=== PATIENT | male | born 1965 | race Hispanic/Latino ===

== ENCOUNTER 2019-10-13 09:39 | Inpatient (IN) ==
[2019-10-13 10:08] LABS: URINE SOURCE CLEAN CATCH
[2019-10-13 10:12] LABS: BASO# 0.05 X1000 (0.0-0.2); BASO% 0.7 % (0.0-0.8); EOS% 7.5 % (0.0-10.0); HEMATOCRIT 44.9 % (42.0-52.0); HEMOGLOBIN 15.7 g/dL (14.0-18.0); LYMPH# 1.73 X1000 (1.2-3.4); LYMPH% 25.9 % (20.5-51.1); MCH 28.3 PG (27-31); MCV 80.9 FL (81-99); MONO# 0.33 X1000 (0.11-0.59); MONO% 4.9 % (1.7-9.3); MPV 11.6 FL (7.4-10.4); NEUT# 4.07 X1000 (1.4-6.5); PLT 224 X1000 (130-400); RBC 5.55 XMIL (4.7-6.1); RDW 12.5 % (11.5-14.5); WBC 6.68 X1000 (4.8-10.8)
[2019-10-13 10:16] LABS: BILIRUBIN URINE NEGATIVE (NEGATIVE); BLOOD URINE NEGATIVE (NEGATIVE); COLOR STRAW; GLUCOSE URINE >1000 mg/dL (NEGATIVE); KETONE URINE NEGATIVE (NEGATIVE); LEUKOCYTES URINE NEGATIVE (NEGATIVE); NITRITE URINE NEGATIVE (NEGATIVE); PROTEIN URINE NEGATIVE (NEGATIVE); SP GRAVITY URINE 1.032; TURBIDITY URINE CLEAR (CLEAR); UR EPITHELIAL CELLS <10 /HPF (<10); URINE BACTERIA NEGATIVE /HPF; URINE RBC <10 /HPF (<10); URINE WBC <10 /HPF (<10); UROBILINOGEN URINE NORMAL (NORMAL)
[2019-10-13 10:48] LABS: AGAP 14; ALB/GLOB RATIO 1.4; ALBUMIN 3.7 g/dL (3.5-5.0); ALKALINE PHOSPHATASE 98 U/L (32-122); AMYLASE 66 U/L (20-200); BUN 17 mg/dL (8-22); CALCIUM 9.1 mg/dL (8.8-10.2); CHLORIDE 97 mmol/L (98-107); COSMO 301; CREATININE 0.9 mg/dL (0.7-1.2); ESTIMATED GFR > 60; GLUCOSE 697 mg/dL (70-104); GOT 13 U/L (10-34); GPT 14 U/L (10-44); LIPASE 105 U/L (13-60); POTASSIUM 4.4 mmol/L (3.5-5.1); SODIUM 133 mmol/L (136-145); TCO2 22 mmol/L (25-35); TOTAL BILIRUBIN 0.49 mg/dL (0.20-1.00); TOTAL PROTEIN 6.3 g/dL (6.3-8.3)
[2019-10-13] MEDS ORDERED: NS 1,000 ML IV ONE ×3 (11:01→14:16)
[2019-10-13] MEDS ORDERED: POTASSIUM CHLORIDE 10% LIQUID PO PRN (11:03)
[2019-10-13] MEDS ORDERED: SODIUM BICARBONATE 8.4% 100 MEQ in STERILE WATER INJ. 500 ML IV PRN (11:03)
[2019-10-13] MEDS ORDERED: POTASSIUM CHLORIDE 20 MEQ/SWI 20 MEQ/100 ML IVPB IV PRN ×2 (11:03)
[2019-10-13] MEDS ORDERED: MAGNESIUM SULFATE 2 GM/S.W.I. 2 GM/50 ML IVPB IV PRN (11:03)
[2019-10-13] MEDS ORDERED: POTASSIUM CHLORIDE 20% LIQUID PO PRN (11:03)
[2019-10-13] MEDS ORDERED: HUMULIN R IV ONE (11:03)
[2019-10-13] MEDS ORDERED: D50W SYRINGE IV PRN ×2 (11:03)
--- NOTE | 2019-10-13 11:15 | PROVIDER DOCUMENTATION ---
HPI-General Adult - General Chief Complaint: General Adult Stated Complaint: "BLOOD SUGAR PROBLEMS" Time Seen by Provider: 10/13/19 10:40 Source: patient Allergies/Adverse Reactions: Patient Allergies Allergy/AdvReac Type Severity Reaction Status Date / Time No Known Allergies Allergy Verified 08/25/19 08:05 - History of Present Illness -Gen Adult Nature of Presenting Problems: Patient is a 54yo M who presents, accompanied by significant other, with c omplaints of "blood sugar problems." Reports he believes his blood sugar is elevated d/t symptoms of polydipsia, polyuria, polyphagia, burning/itching in feet, and weight loss x3 months. States his mother has DM. Also reports intermittent abdominal pain and nausea/vomiting. Denies fever, CP, SOB, di arrhea. Location of Pain/Injury: reports: generalized Pain Radiation: reports: no radiation Quality of Pain: reports: aching, other (itching) Severity: reports: mild Onset/Duration: reports: other (3 months ago) Timing: reports: still present Context/Activities at Onset: reports: none Modifying Factors: improves with: nothing Associated Symptoms: reports: genitourinary problems, loss of appetite, nausea. denies: back/neck pain, chest pain, fever/chills, shortness of breath, vomiting Similar Symptoms Previously?: No Recently seen or treated by another doctor?: No - Diabetes Related Context Context: reports: high blood sugar (Patient believes his blood sugar is high; has not checked) Review of Systems - Adult - REVIEW OF SYSTEMS - ADULT Constitutional: reports: see HPI, weight loss (over 3 months). denies: chills, fever Eyes: reports: no symptoms reported. denies: blurred vision, double vision Ears, Nose, Mouth & Throat: reports: no symptoms reported. denies: ear pain, throat pain Cardiovascular: reports: no symptoms reported. denies: chest pain, palpitations Respiratory: reports: no symptoms reported. denies: cough, shortness of breath Gastrointestinal: reports: see HPI, abdominal pain (intermittent), nausea, vomiting. denies: diarrhea Genitourinary: reports: see HPI, frequency. denies: dysuria Musculoskeletal: reports: no symptoms reported Integumentary: reports: see HPI, itching Neurological: reports: no symptoms reported. denies: dizziness/vertigo, headache/migraines, syncope Psychiatric: reports: no symptoms reported Endocrine: reports: see HPI, increased hunger, increased thirst, polyuria Past History - Adult - PAST MEDICAL HISTORY-ADULT Review of Records: reports: Nursing Assessment Review, Medications Reviewed Major Childhood Illnesses: reports: denies history Cardiovascular: reports: denies history Respiratory: reports: denies history Gastrointestinal: reports: denies history Obstetrical/Gynecological: reports: denies history Genitourinary: reports: denies history Musculoskeletal: reports: denies history Neurological: reports: denies history Psychiatric: reports: denies history Endocrine/Immune: reports: denies history Other Conditions: reports: denies history - PRIOR SURGERIES/PROCEDURES Surgical/Procedure History: reports: none - IMMUNIZATION STATUS Childhood Immunizations: See Nurse Assessment Flu Vaccine: See Nurse Assessment - FAMILY HISTORY Family History: diabetes - SOCIAL HISTORY Smoking: denies, non-smoker Physical Exam-General - PHYSICAL EXAM-ADULT Initial Vital Signs Reviewed: Yes - CONSTITUTIONAL General Appearance: alert, mild distress. negative: lethargic, slow to respond, obtunded - EYES Eyes: PERRL/EOMI, pink conjunctivae. negative: EOM palsy, scleral icterus - HEAD, EARS, NOSE, MOUTH & THROAT HENMT: normocephalic/atraumatic, moist mucous membranes. negative: angioedema - NECK Neck: full range of motion, supple, normal inspection - RESPIRATORY Respiratory: chest non-tender, lungs clear, normal breath sounds, no pleuratic chest pain, no respiratory distress, no accessory muscle use. negative: crackles, rales, rhonchi, stridor, wheezing, retractions, splinting - CARDIOVASCULAR Cardiovascular: regular rate, rhythm - GASTROINTESTINAL (ABDOMEN) Abdominal Exam: normal bowel sounds, non tender, soft. negative: rigid, t enderness - MUSCULOSKELETAL Back Exam: normal inspection Extremity: normal range of motion, non-tender, normal gait, normal inspection - SKIN Integumentary: normal color, warm/dry. negative: cyanosis, jaundice, mottled, p allor - NEUROLOGIC Neurologic: grossly normal. negative: abnormal gait, aphasia, EOM palsy - PSYCHIATRIC Psych/Mental Status: normal mood/affect, normal thought content, normal thought process, oriented x 3 Progress - PLAN OF CARE/RESULTS Progress/Plan/Lab Results: Vital Signs - 8 hr 10/13/19 09:44 Temperature 98.1 F Pulse Rate 94 H Respiratory Rate 20 Blood Pressure 114/78 O2 Sat by Pulse Oximetry 98 Laboratory Results - last 24 hr 10/13/19 10/13/19 10/13/19 09:57 09:57 09:57 WBC 6.68 RBC 5.55 Hgb 15.7 Hct 44.9 MCV 80.9 L MCH 28.3 MCHC 35.0 RDW Std Deviation 12.5 Plt Count 224 MPV 11.6 H Immature Gran % (Auto) 0.0 Neut % (Auto) 61.0 Lymph % (Auto) 25.9 [place] % (Auto) 4.9 Eos % (Auto) 7.5 Baso % (Auto) 0.7 Immature Gran # (Auto) 0.00 Neut # (Auto) 4.07 Lymph # (Auto) 1.73 [place] # (Auto) 0.33 Eos # (Auto) 0.50 Baso # (Auto) 0.05 Sodium 133 L Potassium 4.4 Chloride 97 L Carbon Dioxide 22 L Anion Gap 14 BUN 17 Creatinine 0.9 Estimated GFR/1.73 m2 > 60 BUN/Creatinine Ratio 19 Glucose 697 H* Calculated Osmolality 301 Calcium 9.1 Total Bilirubin 0.49 AST 13 ALT 14 Alkaline Phosphatase 98 Total Protein 6.3 Albumin 3.7 Globulin 2.6 Albumin/Globulin Ratio 1.4 Amylase 66 Lipase 105 H Plasma Lactate Urine Source Urine Color Urine Turbidity Urine pH Ur Specific [place] Urine Protein Ur Glucose (Stick) Ur Ketones (Stick) Urine Blood Urine Nitrite Urine Bilirubin Urobilinogen Dipstick Urine Leukocytes Urine WBC (Auto) Urine RBC (Auto) U Epithel Cells (Auto) Urine Bacteria (Auto) Acetone Level NEGATIVE 10/13/19 10/13/19 10:00 10:43 WBC RBC Hgb Hct MCV MCH MCHC RDW Std Deviation Plt Count MPV Immature Gran % (Auto) Neut % (Auto) Lymph % (Auto) [place] % (Auto) Eos % (Auto) Baso % (Auto) Immature Gran # (Auto) Neut # (Auto) Lymph # (Auto) [place] # (Auto) Eos # (Auto) Baso # (Auto) Sodium Potassium Chloride Carbon Dioxide Anion Gap BUN Creatinine Estimated GFR/1.73 m2 BUN/Creatinine Ratio Glucose Calculated Osmolality Calcium Total Bilirubin AST ALT Alkaline Phosphatase Total Protein Albumin Globulin Albumin/Globulin Ratio Amylase Lipase Plasma Lactate 3.7 H Urine Source CLEAN CATCH Urine Color STRAW Urine Turbidity CLEAR Urine pH 6.0 Ur Specific [place] 1.032 Urine Protein NEGATIVE Ur Glucose (Stick) >1000 A Ur Ketones (Stick) NEGATIVE Urine Blood NEGATIVE Urine Nitrite NEGATIVE Urine Bilirubin NEGATIVE Urobilinogen Dipstick NORMAL Urine Leukocytes NEGATIVE Urine WBC (Auto) <10 Urine RBC (Auto) <10 U Epithel Cells (Auto) <10 Urine Bacteria (Auto) NEGATIVE Acetone Level Orders Category Date Time Status Cardiac Monitoring DIRECTED Care 10/13/19 11:03 Active FSBS [Finger Stick Blood Sugar (ED)] DIRECTED Care 10/13/19 10:39 Completed FSBS/Accucheck Result Q15M Care 10/13/19 11:05 Active FSBS/Accucheck Result Q1H Care 10/13/19 11:03 Active Hypoglycemia/FSBS <50 or Range of 50-70 PRN Care 10/13/19 11:05 Active Notify Physician ORDERED Care 10/13/19 11:05 Active Saline Loc DIRECTED Care 10/13/19 11:05 Active Saline Loc NOW Care 10/13/19 11:01 Active Vital Signs Order Q1H Care 10/13/19 11:03 Active ABG [RESP] Routine Lab 10/13/19 11:01 Ordered ACETONE SERUM [CHEM] Stat Lab 10/13/19 09:57 Completed AMYLASE [CHEM] Stat Lab 10/13/19 09:57 Completed CBC WITH DIFF [HEME] Stat Lab 10/13/19 09:57 Completed CK PROFILE [SP CHEM] Stat Lab 10/13/19 11:03 Uncollected COMPREHENSIVE METABOLIC PANEL [CHEM] Stat Lab 10/13/19 09:57 Completed LACTATE, PLASMA [CHEM] Q3H Lab 10/13/19 13:44 Uncollected LACTATE, PLASMA [CHEM] Q3H Lab 10/13/19 16:44 Uncollected LACTATE, PLASMA [CHEM] Stat Lab 10/13/19 10:43 Completed LIPASE [CHEM] Stat Lab 10/13/19 09:57 Completed MAGNESIUM [CHEM] Stat Lab 10/13/19 11:03 Ordered PHOSPHORUS [CHEM] Stat Lab 10/13/19 11:03 Ordered POTASSIUM [CHEM] Timed Lab 10/13/19 11:03 Uncollected TROPONIN T HIGH SENSITIVITY Stat Lab 10/13/19 11:03 Uncollected URINALYSIS W/POSS RFLX CULT [URINALYSIS] Stat Lab 10/13/19 10:00 Completed URINE DRUG SCREEN Stat Lab 10/13/19 11:03 Ordered 0.9% Sodium Chloride Inj [Ns] 1,000 ml Med 10/13/19 11:01 Active IV 999 mls/hr 0.9% Sodium Chloride Inj [Ns] 1,000 ml Med 10/13/19 11:03 Active IV 999 mls/hr Dextrose 50% Syringe [D50w Syringe] Med 10/13/19 11:03 Active 25 ml IV PRN PRN Dextrose 50% Syringe [D50w Syringe] Med 10/13/19 11:03 Active 50 ml IV PRN PRN Insulin Human Regular [Humulin R] Med 10/13/19 11:03 Discontinued 7.9 unit IV ONCE ONE Magnesium Sulfate 2 gm/S.w.i. Med 10/13/19 11:03 Active 2 gm in 50 ml IV ONCE PRN Potassium Chloride 10% Liquid Med 10/13/19 11:03 Active 20 meq PO ONCE PRN PRN Potassium Chloride 20 Meq/Swi Med 10/13/19 11:03 Ordered 20 meq in 100 ml IV ONCE PRN Potassium Chloride 20 Meq/Swi Med 10/13/19 11:03 Ordered 20 meq in 100 ml IV ONCE PRN Potassium Chloride 20% Liquid Med 10/13/19 11:03 Ordered 40 meq PO ONCE PRN PRN Sodium Bicarbonate 8.4% 100 meq Med 10/13/19 11:03 Ordered Water, Sterile Inj [Sterile Water Inj] 500 ml IV ONCE PRN Hypoglycemia Stat Oth 10/13/19 11:03 Ordered EKG [EKG] Routine Ther 10/13/19 11:03 Ordered Lab results, imaging results, plan of care, and need for admission discussed with patient who agrees with and verbalizes understanding. Result Diagrams: 10/13/19 09:57 10/13/19 13:57 - REASSESSMENT Reassessment #1 Time Reassessed: 13:00 Reassessment Comment: Hospitalist paged - XRAY 1 XRAY: Bilateral XRAY Study: Chest Impression: See EMR Report ([facility] - [address], [address], [place] [address] [facility] - [address] [place] [address] Department of Imaging Patient: TREJOCARLO NICOLEADM Date: 10/13/19MR#: [id number] : 1965ADM Status: PRE ERAcct#: [id number] Age/Sex: 54/MRoom/Bed: Loc: ED Ordering Physician: Saundra Coto Family Physician: None,PCP Reason for Procedure: Possible DKA Signed CHEST-2 VIEWS - 10/13/2019 INDICATION: Possible DKA COMPARISON: None FINDINGS: The lungs are normally expanded and clear. Heart size and mediastinal contours are normal. No pneumothorax or pleural effusion. IMPRESSION: Negative exam. Electronically signed by Poncho Elizabeth 10/13/2019 12:43 PM 10/13/19 1243 Interpreting Physician: Poncho Elizabeth MD Dictated Date/Time: 10/13/19 1243 cc: Saundra Torres; None,PCP) - CT/MRI 1 CT Study: Abdomen, Pelvis Impression: See EMR Report ([facility] - [address] [place] [address] [address], [place] [address] [facility] - [address] [place] [address] Department of Imaging Patient: CARLO AVELARADM Date: 10/13/19MR#: [id number] : 1965ADM Status: REG ERAcct#: [id number] Age/Sex: 54/MRoom/Bed: Loc: ED Ordering Physician: Saundra Coto Family Physician: None,PCP Reason for Procedure: abd pain; elevated lipase Signed CT ABD/PELVIS W/IV CONT ONLY - 10/13/2019 INDICATION: abd pain; elevated lipase COMPARISON: None FINDINGS: The lung bases are clear and the heart size is normal. The liver, gallbladder, spleen, pancreas, adrenals, and kidneys are normal. No bowel obstruction or inflammation. There is significant, diffuse constipation. Urinary bladder, prostate, and rectum are normal. There are moderate degenerative changes of the spine. No acute or suspicious bony lesion. IMPRESSION: Significant, diffuse constipation. Otherwise no acute disease. This exam was performed using automated exposure control, adjustment of mA or kV according to patient size, and/or use of iterative reconstruction technique Electronically signed by Poncho Elizabeth 10/13/2019 12:50 PM 10/13/19 1250 Interpreting Physician: Poncho Elizabeth MD Dictated Date/Time: 10/13/19 1249 cc: Saundra Torres; None,PCP) - CONSULTS/PCP/HOSPITALIST Notification #1 *Consult/PCP/Hospitalist*: Anu Delgado Time Discussed: 13:13 Reason/Comments: New onset DM; elevated lactic acid; abdominal pain; nausea Consult Disposition: Will see in ED, Admit Departure - Departure Date of Disposition Decision: 10/13/19 Time of Disposition Decision: 13:13 DIAGNOSIS: Diabetes mellitus, new onset, Hyperglycemia, Elevated lactic acid level, Elevated lipase Abdominal pain Qualifiers: Abdominal location: generalized Qualified Code(s): R10.84 - Generalized abdominal pain Nausea and vomiting Qualifiers: Vomiting type: unspecified Vomiting Intractability: unspecified Qualified Code(s): R11.2 - Nausea with vomiting, unspecified Disposition: ADMITTED INPATIENT 09 Certified Medical Emergency: Emergent Condition: Stable - Critical Care Note This patient required my direct & personal management of CC.: No Attestation - Physician/ DEO Attestation Patient care was provided by Advanced Practice Provider:: Yes Advanced Practice Provider:: Saundra Torres Advanced Practice Provider documentation review:: The Mid-level provider documentation, treatment plan and medical decision making was reviewed by the physician who agrees with all treatment and medical decision making by the P. The physician spent face to face time with patient:: No Advanced Practice Provider documentation review:: Supervising physician onsite and consulted in the evaluation and care of this patient. The physician did not have a face to face encounter with the patient.
[2019-10-13 11:24] LABS: ALLEN TEST YES; BE -2.7 mmoll (-3.0-3.0); BLOOD TYPE ARTERIAL; HCO3-(ACT) 22.8 mmoll (20.0-26.0); METHB 0.2 % (0.0-1.5); O2(CT) 21.1 mL/dL (15.0-23.0); O2HB 96.2 % (95.0-99.0); PCO2(98.6) 37 mmHg (35-45); PO2(98.6) 90 mmHg (60-100); SAMPLE BLOOD; SAO2 99.5 % (95.0-100.0); THB 15.6 g/dL (11.5-17.4); pH(98.6) 7.38 (7.35-7.45)
[2019-10-13 11:25] LABS: MODALITY ROOM AIR
[2019-10-13 11:48] LABS: UR AMPHETAMINES QUAL NONE DETECTED (NONE DETECT); UR BARBITUATES QUAL NONE DETECTED (NONE DETECT); UR BENZODIAZEPIN QUAL NONE DETECTED (NONE DETECT); UR CANNABINOIDS QUAL NONE DETECTED (NONE DETECT); UR COCAINE QUAL NONE DETECTED (NONE DETECT); UR METHADONE QUAL NONE DETECTED (NONE DETECT); UR OPIATES QUAL NONE DETECTED (NONE DETECT); UR OXYCODONE QUAL NONE DETECTED (NONE DETECT); UR PCP QUAL NONE DETECTED (NONE DETECT)
--- NOTE | 2019-10-13 12:46 | Diag Imaging Result Doc PS360 ---
CHEST-2 VIEWS - 10/13/2019 INDICATION: Possible DKA COMPARISON: None FINDINGS: The lungs are normally expanded and clear. Heart size and mediastinal contours are normal. No pneumothorax or pleural effusion. IMPRESSION: Negative exam. Electronically signed by Poncho Elizabeth 10/13/2019 12:43 PM
--- NOTE | 2019-10-13 12:53 | Diag Imaging Result Doc PS360 ---
CT ABD/PELVIS W/IV CONT ONLY - 10/13/2019 INDICATION: abd pain; elevated lipase COMPARISON: None FINDINGS: The lung bases are clear and the heart size is normal. The liver, gallbladder, spleen, pancreas, adrenals, and kidneys are normal. No bowel obstruction or inflammation. There is significant, diffuse constipation. Urinary bladder, prostate, and rectum are normal. There are moderate degenerative changes of the spine. No acute or suspicious bony lesion. IMPRESSION: Significant, diffuse constipation. Otherwise no acute disease. This exam was performed using automated exposure control, adjustment of mA or kV according to patient size, and/or use of iterative reconstruction technique Electronically signed by Poncho Elizabeth 10/13/2019 12:50 PM
[2019-10-13 14:17] LABS: HEMOGLOBIN A1C 12.5 % (4.8-6.0)
[2019-10-13] MEDS ORDERED: NS 1,000 ML ONE (14:21)
[2019-10-13] MEDS ORDERED: ZOFRAN IV PRN (14:56)
[2019-10-13 15:02] LABS: AGAP 9; BUN 16 mg/dL (8-22); CALCIUM 8.3 mg/dL (8.8-10.2); CHLORIDE 106 mmol/L (98-107); COSMO 287; CREATININE 0.6 mg/dL (0.7-1.2); ESTIMATED GFR > 60; GLUCOSE 279 mg/dL (70-104); MAGNESIUM 1.9 mg/dL (1.5-2.7); PHOSPHORUS 2.6 mg/dL (2.7-4.5); POTASSIUM 4.1 mmol/L (3.5-5.1); SODIUM 138 mmol/L (136-145); TCO2 23 mmol/L (25-35)
[2019-10-13] MEDS ORDERED: FLEET MINERAL OIL ENEMA PR ONE ×2 (15:06→17:26)
[2019-10-13] MEDS ORDERED: FLEET ENEMA PR ONE (15:06)
[2019-10-13] MEDS ORDERED: PROTONIX IV SCH (15:15)
[2019-10-13] MEDS ORDERED: SODIUM CHLORIDE 0.9% INJ SCH (15:15)
[2019-10-13] MEDS: HUMALOG SUBQ SCH ×2 (16:44→21:18)
[2019-10-13] MEDS ORDERED: DULCOLAX PR SCH (18:00)
[2019-10-13] MEDS: GLUCOPHAGE PO SCH (18:43)
--- NOTE | 2019-10-13 20:38 | HISTORY AND PHYSICAL ---
CHIEF COMPLAINT: Abdominal pain, nausea, polydipsia, polyuria, polyphagia, and weight loss. HISTORY OF PRESENT ILLNESS: This is a 54-year-old gentleman who presented to the emergency room complaining of polydipsia, polyuria, polyphagia, as well as burning and itching in his feet, and weight loss over the last 3 months. He states that over the last probably 3 to 4 weeks, he has had intermittent abdominal pain with nausea and vomiting. Nausea has been persistent over the past few days. He does complain of abdominal pain, particularly his umbilical to right upper quadrant area, on palpation. He describes this as an aching type pain. He denied any chest pain, shortness of breath, any diarrhea. PAST MEDICAL HISTORY: Denies. PAST SURGICAL HISTORY: Denies. SOCIAL HISTORY: He denies any alcohol, tobacco, or illicit drug use. FAMILY HISTORY: His mother has diabetes. REVIEW OF SYSTEMS: Discussed with patient with friend translating. He denies any syncope, dizziness, chest pain, palpitations, shortness of breath, cough, fever, chills, any diarrhea, constipation, any black or bloody vomitus or stools, any hematuria or dysuria. PHYSICAL EXAMINATION: GENERAL: This is a 54-year-old gentleman who is lying on the stretcher in the emergency room in no distress. VITAL SIGNS: Blood pressure is 134/70 with heart rate of 64, respirations are 16, temperature is 98.1 degrees, with room air saturations 96% to 98%. EYES: Pupils equal, round, and react to light. EOMs are intact. Sclerae are anicteric. HEENT: Head is normocephalic, atraumatic. Mucous membranes are moist. NECK: Supple, with trachea midline. CARDIOVASCULAR: Regular rate and rhythm. S1 and S2 appreciated. He has no lower extremity edema. Peripheral pulses are palpable x4 extremities. PULMONARY: Breath sounds are clear with no increased work of breathing noted. Chest rises and falls symmetrically with respiration. Chest wall is nontender to palpation. GASTROINTESTINAL: Abdomen is soft, nontender. He does have some tenderness around the umbilical and right upper quadrant area. Bowel sounds in all 4 quadrants. GENITOURINARY: No CVA or suprapubic tenderness. The bladder is not palpable. NEUROLOGIC: He is alert and oriented. SKIN: Warm and dry. LABS: WBC is 6.6 with hemoglobin 15.7, hematocrit 44.9, and platelets 224,000. Sodium 133, potassium is 4.4, CO2 22, anion gap 14, with a BUN of 17, a creatinine of 0.9, and a glucose of 697. Troponin was 25. Lipase 105 with a lactate of 3.7. Urinalysis is essentially negative with the exception of glucose of greater than 1000. Urine drug screen is none detected with acetone negative. Chest x-ray revealed a negative exam. CT of the abdomen and pelvis with IV contrast revealed significant diffuse constipation. ASSESSMENT AND PLAN: 1. New onset diabetes mellitus. 2. Hyperglycemia. 3. Abdominal pain, nausea, vomiting. 4. Pancreatitis with elevated lipase. PLAN: 1. The patient will be admitted to the hospital. 2. telemetry for close monitoring. 3. continue with intravenous hydration. 4.check blood sugars every 4 hours with sliding scale insulin. 5. recheck a BMP, magnesium, and phosphorus stat now. 6. CBC, CMP, magnesium, phosphorus, and lipase in the morning. 7. Zofran for nausea. 8. Fleet's oil enema with a saline enema now, and then will start Dulcolax suppositories every 6 hours. 9. For deep venous thrombosis prophylaxis, will use Lovenox. 10. For gastrointestinal prophylaxis, will use Protonix. Patient was examined and plan was discussed with Dr. Fuentes. Further treatments pending hospital course. Dictated by ORIN Farrell for Joe Brice MD cc: ORIN Farrell MD [facility]
--- NOTE | 2019-10-13 22:42 | HISTORY AND PHYSICAL ---
ADDENDUM: The patient was seen and examined by me [id number]. All laboratory, vital signs and images were reviewed. The patient presented to the emergency department with chief complaint of dizziness and as per the patient has been going on for a few weeks now, maybe 2 to 3 months. As per the patient, he has been having problems at work because of the dizziness and generalized weakness, he also felt that he has been losing weight, but he does not know how much though. He has been complaining of some abdominal discomfort on and off. CT scan done in the emergency department did not show any acute process but constipation. Chest x-ray is negative. This patient's blood sugar though upon admission was around 697. The anion gap was slightly elevated at 14, and after getting some fluids, it decreased to 9. He is not complaining of nausea or vomiting. His hemoglobin A1c is 12.5, and he has never been diagnosed with diabetes. He is getting some IV fluids. He is getting some enema and Dulcolax suppository for the constipation. As per the patient, he had some small and hard bowel movements. We will go ahead and put him on sliding scale insulin. Vital signs are stable. Hopefully we will discharge this patient in the next 24 to 48 hours. I will start this patient on metformin to see how he does, a low dose of lisinopril as well. His lipase level is slightly elevated. We will continue with the IV fluids. He is hungry, and he is not having significant pain upon palpation so I will put this patient on a clear liquid diet. I agree with the rest of the nurse practitioner's assessment and plan. cc: Joe Brice MD
[2019-10-14] MEDS: HUMALOG SUBQ SCH (06:42)
[2019-10-14 07:54] VITALS: BP 147/82
[2019-10-14 08:13] LABS: BASO# 0.02 X1000 (0.0-0.2); BASO% 0.2 % (0.0-0.8); EOS% 4.6 % (0.0-10.0); HEMATOCRIT 43.2 % (42.0-52.0); HEMOGLOBIN 15.3 g/dL (14.0-18.0); IMM GRAN# 0.02 X1000 (0.0-0.04); IMM GRAN% 0.2 % (0.0-0.5); LYMPH% 19.6 % (20.5-51.1); MCH 28.8 PG (27-31); MCHC 35.4 g/dL (33-37); MCV 81.4 FL (81-99); MONO# 0.29 X1000 (0.11-0.59); MONO% 3.3 % (1.7-9.3); MPV 11.3 FL (7.4-10.4); NEUT# 6.26 X1000 (1.4-6.5); NEUT% 72.1 % (42.2-75.2); PLT 205 X1000 (130-400); RBC 5.31 XMIL (4.7-6.1); RDW 12.6 % (11.5-14.5); WBC 8.69 X1000 (4.8-10.8)
[2019-10-14 08:51] LABS: AGAP 11; ALB/GLOB RATIO 1.4; ALBUMIN 3.3 g/dL (3.5-5.0); ALKALINE PHOSPHATASE 76 U/L (32-122); BUN 11 mg/dL (8-22); CALCIUM 8.8 mg/dL (8.8-10.2); CHLORIDE 103 mmol/L (98-107); COSMO 280; CREATININE 0.7 mg/dL (0.7-1.2); ESTIMATED GFR > 60; GLUCOSE 228 mg/dL (70-104); GOT 12 U/L (10-34); GPT 12 U/L (10-44); MAGNESIUM 1.9 mg/dL (1.5-2.7); POTASSIUM 3.8 mmol/L (3.5-5.1); SODIUM 137 mmol/L (136-145); TCO2 23 mmol/L (25-35); TOTAL BILIRUBIN 0.52 mg/dL (0.20-1.00); TOTAL PROTEIN 5.6 g/dL (6.3-8.3)
[2019-10-14] MEDS ORDERED: DULCOLAX PR SCH (09:00)
[2019-10-14] MEDS ORDERED: LOVENOX SUBQ SCH (09:00)
[2019-10-14] MEDS ORDERED: PRINIVIL PO SCH (09:00)
[2019-10-14 09:15] LABS: PHOSPHORUS 2.7 mg/dL (2.7-4.5)
[2019-10-14] MEDS: GLUCOPHAGE PO SCH (10:05)
--- NOTE | 2019-10-14 22:47 | DISCHARGE SUMMARY ---
ADMISSION DATE: 10/13/2019 DISCHARGE DATE: 10/14/2019 SUBJECTIVE: No acute events overnight. The patient is feeling much better. His blood sugar decreased from 697 to 228 today. I have started this patient on metformin twice a day. He will need to follow up with his primary doctor in 1 to 2 weeks. I talked to him and also his fiancee at the bedside about diabetes and diet. DISCHARGE DIAGNOSES: 1. New-onset type 2 diabetes with hyperglycemia, better. 2. Abdominal pain with elevated lipase level, possible mild pancreatitis, resolved. HOSPITAL COURSE: A 54-year-old male with no medical history presented to the emergency department with dizziness, fatigue, also generalized weakness, apparently he has been complaining of polydipsia, polyuria, polyphagia, as well as burning sensation of and itching in his feet. He reported also some weight loss over the last 3 months. As per the patient, he has been having intermittent abdominal pain with nausea for the past 3 to 4 weeks. He came to the emergency department and we found out that this patient's blood sugar was elevated at 697 with a hemoglobin A1c of 12.5. This patient received high IV hydration and also he was constipated. He received some enemas and suppository and this is much better. I had a large conversation with this patient about treatment options including p.o. treatment and insulin treatment. He would like to try 1st metformin with some lisinopril with diet and exercise before going ahead and trying some insulin. So I discussed with him the diet, as well as the fiancee at the bedside. He will need to follow up with his primary care doctor in 1 to 2 weeks. He needs to find 1 actually. His vital signs are stable and he is completely asymptomatic. OBJECTIVE: Vital signs: Temperature 98.1 degrees, pulse 72, respiratory rate 16, blood pressure 147/82. Oxygen saturation 95% on room air. HEENT: Head normocephalic, no trauma, PERRLA. Neck: Supple. No JVD. No masses. Central trachea. Chest: Clear to auscultation. No wheezing. No rales. Abdomen: Soft, nontender, nondistended. No hepatosplenomegaly. Extremities: No edema, no clubbing, no cyanosis. Neurological: The patient is awake and alert. He is oriented x3. No focal deficits. LABORATORY: WBC 8.6, hemoglobin 15.3, hematocrit 43.2, platelets 205,000. Sodium 137, potassium 3.8, chloride 103, bicarbonate 23, BUN 11, creatinine 0.7. Glucose 228, calcium 8.8, phosphorus 2.7. AST 12, ALT 12, alkaline phosphatase 76. Albumin 3.3. Lipase level is 22. DISCHARGE MEDICATIONS: 1. Dulcolax 10 mg per rectal daily as needed for constipation. 2. Lisinopril 10 mg p.o. daily. 3. Metformin 500 mg p.o. b.i.d. 4. MiraLAX 17 g p.o. daily. TIME DISCHARGING THIS PATIENT: 25 minutes. cc: Joe Brice MD
== END 2019-10-14 10:29 | disposition home or self-care (01) | DRG 637 ==
LOC: ED 09:39 → EDIPHOLD 15:30 → 3N 17:22
PROVIDERS: ATTEND Internal Medicine